=== PATIENT | female | born 1950 | race Caucasian/White ===

== ENCOUNTER 2018-11-08 07:18 | Outpatient (CLI) | payer MEDICARE | END 2018-11-08 07:19 | disposition home or self-care (01) | LOC: RAD 07:18 ==

== ENCOUNTER 2019-01-16 09:52 | Outpatient (CLI) | payer MEDICARE | END 2019-01-16 09:53 | disposition home or self-care (01) | LOC: RAD 09:52 ==

== ENCOUNTER 2019-01-31 08:23 | Outpatient (CLI) | payer MEDICARE | END 2019-01-31 09:38 | disposition home or self-care (01) | LOC: LAB 08:23 ==